=== PATIENT | male | born 1980 | race Caucasian/White ===

== ENCOUNTER 2022-10-12 08:15 | Emergency (ER) | payer BC, SELFPAY ==
[2022-10-12 08:22] VITALS: BP 113/85; PULSE 90; RESP 18; TEMP 37.1; O2SAT 98
--- NOTE | 2022-10-12 08:46 | ED.URI ---
HPI - URI/Sore Throat General Chief Complaint: Upper Respiratory Infection Stated Complaint: Cough/Chest Congestion Time Seen by Provider: 10/12/22 08:46 Source: patient, RN notes reviewed and old records reviewed Mode of arrival: ambulatory Limitations: no limitations History of Present Illness HPI Narrative: 42-year-old male who presents to [facility] with complaints of cough and sinus drainage for the past 2 weeks. Patient states he has had intermittent low-grade fevers denies any chills or sweats or any body aches he reports that he has been taking DayQuil and NyQuil and also some Mucinex, reports cough is productive at times of yellowish to brown phlegm. Patient does state that he has some tightness in his upper chest when he coughs. Patient reports that he has some left sided nasal bleeding noted and has an appointment with ENT. MD elicited complaint: cough, sore throat, rhinorrhea and nasal congestion Onset (ago): week(s) (2) Pain scale (0-10): 3 Able to tolerate fluids by mouth: Yes Treatments prior to arrival: other (DayQuil, NyQuil, Mucinex) Related Data Home Medications Medication Instructions Recorded Confirmed amitriptyline 50 mg tablet 50 mg PO DAILY 10/12/22 10/12/22 rizatriptan 10 mg tablet 10 mg PO DAILY PRN Migraine 10/12/22 10/12/22 Headache Allergies Allergy/AdvReac Type Severity Reaction Status Date / Time No Known Allergies Allergy Verified 10/12/22 08:35 Review of Systems Review of Systems: CONSTITUTIONAL: Reports malaise, chills, sweats, or fever. EYES: Denies visual changes, redness, or discharge. ENT: Reports rhinorrhea, congestion, sinus pain, no otalgia and no sore throat. CARDIOVASCULAR: reports some upper chest pain with cough,no palpitations, or edema. RESPIRATORY: Reports cough.? Reports some dyspnea with cough GASTROINTESTINAL: Denies abdominal pain, nausea, vomiting, diarrhea SKIN: Denies rash or itching. MUSCULOSKELETAL: Denies myalgia. NEUROLOGIC: Denies headache. All systems reviewed & are unremarkable except as noted in HPI and below PMFSH Past Medical History Medical History (Updated 10/13/22 @ 00:01 by Randy Alfaro) Hx of migraines Surgical History Surgical History (Updated 10/12/22 @ 09:03 by Adriana Mccollum NP) H/O umbilical hernia repair Social History Social History (Updated 10/12/22 @ 09:00 by Adriana Mccollum NP) Smoking status: Current every day smoker Tobacco type: e-cigarettes/vaping Alcohol intake: never Substance use type: does not use Living arrangements: with family Gender identity (if verbalized by the patient): Male Comments At time of signature, agree with nursing past medical, surgical, social and family history. There is no relevant family history pertinent to the presenting complaint Exam Narrative: GENERAL: Well-appearing, well-nourished, and in no acute distress. HEAD: Normocephalic EYES: PERRLA, conjunctivae clear ENT: Nares clear, turbinates edematous and erythematous, clear to light yellow discharge. Mucous membranes moist. TM pearly jacobson with dull light reflex bilaterally; no tragal tenderness. Oropharynx erythematous without lesions. Tonsils not enlarged and without exudate, no drooling, no hoarseness, no trismus, uvula midline.post nasal drainage. NECK: Supple. No lymphadenopathy CHEST: Clear to auscultation, breath sounds equal. No wheezing, rhonchi, rales, or stridor. No respiratory distress, speaks in full sentences.some dyspnea with cough, SAO2 98% on room air HEART: Regular rate and rhythm. No murmur heard. SKIN: Warm, dry, no rash. NEURO: Alert and oriented x3. PSYCH: Normal mood and affect Course Course Emergency Course: Patient is aware of diagnosis, understands and agrees to treatment plan.? Anticipatory guidance given.? Patient agrees to follow-up as directed and is aware of reasons to seek care at the emergency department. Portions of this record may have b
== END 2022-10-12 09:08 | disposition home or self-care (01) ==
PROVIDERS: Emergency Provider Registered Nurse; PCP Internal Medicine
DX: J32.9 Chronic sinusitis, unspecified (principal); R05.9 Cough, unspecified; F17.290 Nicotine dependence, other tobacco product, uncomplicated
CPT/HCPCS: 99203; G0463

== ENCOUNTER 2025-06-28 14:14 | Emergency (ER) | payer OTHER, SELFPAY ==
--- OUTSIDE RECORDS SUMMARY | 2025-06-28 14:17 | XMS_ITS | Clinical Summary ---
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 May repeat in 2 hours in needed 10 Tablet Active Additional Information Patient not taking.Reported on 12/18/2024 dicyclomine (BENTYL) 10 MG CapsuleIndicatio ns:Irritable bowel syndrome with diarrhea Take 1 Capsule by mouth as needed for Other (stomach cramping). 30 Capsule 5 Active Additional Information Patient not taking.Reported on 12/18/2024 Active Problems Problem Noted Date Diagnosed Date Irritable bowel syndrome Migraine Immunizations Immunization Administration Dates Next Due Influenza Vaccine, Quadrivalent, PF 07/13/2023 Influenza Vaccine,unspecified Formulation 2019 Influenza, Recombinant, Quadrivalent,injectable, Pf 05/26/2020 TDAP Vaccine 01/04/2016 Family History Medical History Relation Name Comments Diabetes Maternal Grandfather Skin Cancer Mother Prostate Cancer Paternal Grandfather Relation Name Status Comments Father Alive Maternal Grandfather Mother Alive Paternal Grandfather Social History Tobacco Use Types Packs/Day Years Used Date Smoking Tobacco: Former Cigarettes 0 Q uit: 01/28/2002 Smokeless Tobacco: Never Tobacco Cessation:Counseling Given: No Alcohol Use Standard Drinks/Week Comments No 0 (1 standard drink = 0.6 oz pur e alcohol) [facility] Utilities Answer Date Recorded In the past 12 months has e electric, gas, oil, or water company threatened to shut off services in your home? Yes 12/18/2024 Social Connection and Isolation Panel Answer Date Recorded In a typical week, how many times do you talk on the phone with family, friends, or neighbors? More than three times a week 12/18/2024 How often do you get togethe r with friends or relatives? Once a week 12/18/2024 How often do you attend chur ch or rastafari services? More than 4 times per year 12/18/2024 Do you belong to any clubs o r organizations such as catholic groups, unions, fraternal or athletic groups, or school groups? Yes 12/18/2024 How often do you attend meet ings of the clubs or organizations you belong to? More than 4 times per year 12/18/2024 Are you , , di vorced, , never , or living with a partner? 12/18/2024 AUDIT-C Answer Date Recorded Q1: How often do you have a drink containing alcohol? Never 12/18/2024 Q2: How many drinks containi ng alcohol do you have on a typical day when you are drinking? Patient does not drink Q3: How often do you have si x or more drinks on one occasion? Never 12/18/2024 Overall Financial Resource Strain (CARDIA) Answe r Date Recorded How hard is it for you to pa y for the very basics like food, housing, medical care, and heating? Somewhat hard 12/18/2024 PHQ-2 Answer Date Recorded Total Score - Questions 1-9 0 11/29 [employer] [place] [facility] Occup[employer] ional Health - Occupational Stress Questionnaire Answer Date Recorded Do you feel stress - tense, restless, nervous, or anxious, or unable to sleep at night because your mind is troubled all the time - these days? Only a little 12/18/2024 Exercise Vital Sign Answer Date Recorde d On average, how many days pe r week do you engage in moderate to strenuous exercise (like a brisk walk)? 5 days 12/18/2024 On average, how many minutes do you engage in exercise at this level? 60 min 12/18/2024 Hunger Vital Sign Answer Date Recorded Within the past 12 months, y ou worried that your food would run out before you got the money to buy more. Never true 12/19/19 25 Within the past 12 months, t he food you bought just didn't last and you didn't have money to get more. Never true 12/18/2024 PRAPARE - Transportation Answer Date Re corded In the past 12 months, has l ack of transportation kept you from medical appointments or from getting medications? No 11/29 In the past 12 months, has l ack of transportation kept you from meetings, work, or from getting things needed for daily living? No 12/18/2024 Housing Stability Vital Sign Answer Phan e Recorded In the last 12 months, was t here a time when you were not able to pay the mortgage or rent on time? No 07/13/2023 In the last 12 months, how many places have you lived? 1 07/13/2023 In the last 12 months, was t here a time when you did not have a steady place to sleep or slept in a nursing home (including now)? No 07/13/2023 Housing Stability Vital Sign Answer Phan e Recorded In the last 12 months, was t here a time when you were not able to pay the mortgage or rent on time? Yes 12/18/2024 In the past 12 months, how m any times have you moved where you were living? 0 12/18/2024 At any time in the past 12 m [facility], were you homeless or living in a nursing home (including now)? No 12/18/2024 Education Answer Date Recorded What is the highest level of school you have completed or the highest degree you have received? Some college, no degree 02/14/2022 Sex and Gender Information Value Date Recorded Sex Assigned at Not on file Legal Sex Male 1:17 PM CDT Gender Identity Not on file Sexual Orientation Not on file Last Filed Vital Signs Vital Sign Reading Time Taken Comments Blood Pressure 108/64 12/18/2024 2:47 PM CDT Pulse 72 12/18/2024 2:47 PM CDT Temperature 36.2 C (97.1 F) 12/18/2024 2:47 PM CDT Respiratory Rate 16 12/18/2024 2:47 PM CDT Oxygen Saturation 98% 12/18/2024 2:47 PM CDT Inhaled Oxygen Concentration - - Weight 82 kg (180 lb 12.8 oz) 12/18/2024 2:47 PM CDT Height 177.8 cm (5' 10) 12/18/2024 2:47 PM CDT Body Mass Index 25.94 12/18/2024 2:47 PM CDT Plan of Treatment Upcoming Encounters Date Type Department Care Team (Late st Contact Info) Description 12/23/2025 3:30 PM CDT Office Visit [facility] [address] [place] [address] Dani Sidhu MD [id number] [id number] Health Maintenance Due Date Last Done Comments Cologuard 2023 Colonoscopy 2023 Colorectal Cancer Screening 2023 Immunochemical Fecal Occult Blood 2023 Influenza Immunization (#1) 03/31/202506/30, 05/26/2020, 05/26/2020 Td Immunization Every 10 Yea rs (Adults With 1 Tdap) 01/03/2026 01/04/2016 Respiratory Syncytial Virus (RSV) Immunization (Adult) (1 - 1-dose 75+ series) 2053 DTaP/Tdap/Td Immunization Discontinued 01/04/2016 Hepatitis B Immunization Discontinued Hepatitis C Virus (HCV) Screening Discontinued Human Papillomavirus (HPV) Immunization Aged Out No longer eligible based on patient's age to complete this topic Meningococcal Immunization (ACWY) Aged Out No longer eligible based on patient's age to complete this topic Pneumococcal Immunization Combined Aged Out No longer eligible based on patient's age to complete this topic Rotavirus Immunization Aged Out No lo nger eligible based on patient's age to complete this topic SARS-COV-2 Immunization Discontinued Insurance [facility] Care Teams Wash Plant Operator Relationship Specialty Start Date End Date Dani Sidhu MD [address] [place] [address] PCP - General Family Medicine 03/25/22
[2025-06-28 14:21] VITALS: BP 120/97; PULSE 91; RESP 18; TEMP 36.3; O2SAT 98
--- NOTE | 2025-06-28 14:29 | ED.SKABFB ---
HPI - Skin/Abscess/Foreign Bdy General Chief complaint: Skin/Abscess/Foreign Body Stated complaint: remove stitches Time Seen by Provider: 06/28/25 14:20 Source: patient and RN notes reviewed Mode of arrival: ambulatory Limitations: no limitations History of Present Illness HPI narrative: 45-year-old male patient presents to the [facility] complaining of suture removal. He says he has sutures in for 8 days he was told to get a month 7-10. Patient's sutures in his left ring finger after accidentally cutting himself while gutting a deer. Patient was prophylactically prescribed cephalexin. Patient denies any concern of infection. Related Data Home Medications ?Medication ?Instructions ?Recorded ?Confirmed ?Last Taken ?Type amitriptyline 50 mg tablet 50 mg PO DAILY 10/12/22 10/12/22 Unknown History rizatriptan 10 mg tablet 10 mg PO DAILY PRN Migraine 10/12/22 10/12/22 Unknown History Headache dicyclomine 10 mg capsule mg 06/28/25 Unknown History Allergies Allergy/AdvReac Type Severity Reaction Status Date / Time No Known Allergies Allergy Verified 06/28/25 14:21 Review of Systems Review of Systems: CONSTITUTIONAL: Denies fever, chills, or sweats. EYES: Denies visual changes, redness, or discharge. ENT: Denies rhinorrhea, congestion, sore throat, or otalgia. CARDIOVASCULAR: Denies chest pain, palpitations, or edema. RESPIRATORY: Denies cough or dyspnea. GASTROINTESTINAL: Denies abdominal pain, nausea, vomiting, or diarrhea. GENITOURINARY: Denies dysuria or hematuria. SKIN: Denies rash or itching. Positive for laceration MUSCULOSKELETAL: Denies back pain, joint pain, or myalgia. NEUROLOGIC: Denies headache, numbness, or weakness. PSYCHIATRIC: Denies anxiety or depression. All other systems reviewed are negative, except as documented in HPI. [facility] Past Medical History Medical History Hx of migraines Surgical History Surgical History H/O umbilical hernia repair Social History Social History Smoking status: Current every day smoker Tobacco type: e-cigarettes/vaping Alcohol intake: never Substance use type: does not use Living arrangements: with family Gender identity (if verbalized by the patient): Male Comments At the time of my signature, I reviewed and agree with the nursing past medical, surgical, social, and family history. There is no relevant family history pertinent to the patient complaint. Exam Narrative: GENERAL: This is a well-nourished, well-developed adult, in no apparent distress. They are non ill-appearing, nontoxic appearing. HEAD: normocephalic, atraumatic. EYES: Sclera clear/white. Conjunctiva normal. Vision is grossly intact. Extraocular movements intact EARS: External ears normal,. Hearing grossly intact. NOSE: External nose normal THROAT: Mucous membranes moist, NECK: Neck supple, CARDIOVASCULAR: Regular rate and rhythm RESPIRATORY: Respiratory rate normal, respiratory effort nonlabored, no respiratory distress GASTROINTESTINAL: Abdomen soft, non-tender, nondistended. Bowel sounds are active. No hepato-splenomegaly, or palpable masses. No guarding. SKIN: Left ring finger. Sutures present to the distal palmar ring finger. Six sut[address]. No erythema, swelling, pain, exudate, drainage, no induration, no area of fluctuance. Wound is closed and well approximated. Normal range of motion. Capillary refill less than 2 seconds. Sensation intact. Neurovascular status intact distal injury. NEURO: awake, alert, and oriented to person, place and time. There were no obvious focal neurologic abnormalities. EXTREMITIES: No joint tenderness, effusion, or edema noted. BACK: Nontender without deformity. Course Course Emergency Course: Portions of this record may have been created with voice recognition software Level of Care: Express Care Visit Vital Signs Vital signs: Vital Signs Temperature 97.3 F L 06/28/25 14:21 Pulse Rate 91 06/28/25 14:21 Respiratory Rate 18 06/28/25 14:21 Blood Pressure 120/97 H 06/28/25 14:21 Pulse Oximetry 98 06/28/25 14:21 Oxygen Delivery Room Air 06/28/25 14:21 Temperature 97.3 F L 06/28/25 14:21 Pulse Rate 91 06/28/25 14:21 Respiratory Rate 18 06/28/25 14:21 Blood Pressure 120/97 H 06/28/25 14:21 Pulse Oximetry 98 06/28/25 14:21 Oxygen Delivery Room Air 06/28/25 14:21 Reviewed MDM - Skin/Abscess/Foreign Bdy MDM Narrative Medical decision making narrative: Successful removal of 6 sutures. No evidence of infection. No finger dysfunction. Discussed physical exam findings. Advised supportive measures and signs/symptoms to go to the ER. Pt is appropriate for outpt treatment and f/u. Critical Care Time Critical Care Time Critical Care Time: No Discharge Plan Discharge Clinical Impression: Visit for suture removal Patient Disposition: Home Condition: Stable Instructions: Care For Your Stitches (ED) Additional Instructions: Continue to wash the skin do with mild soap and water. Do not soak or scrub the wound. Continue to look for signs of infection such as increased redness, swelling, pain, green/yellow drainage, fevers, body aches, chills. Follow-up PCP as needed. Return the ER for any signs of infection or any serious concerns. Patient Language: Thai Prescriptions: No Action rizatriptan 10 mg tablet 10 mg PO DAILY PRN (Reason: Migraine Headache) amitriptyline 50 mg tablet 50 mg PO DAILY dicyclomine 10 mg capsule Follow-up/Referrals: Nahum,Dani Santizo MD [Primary Care Provider] Time of Disposition: 14:29
== END 2025-06-28 14:33 | disposition home or self-care (01) ==
PROVIDERS: PCP Internal Medicine
DX: S61.215D Laceration without foreign body of left ring finger without damage to nail, subsequent encounter (principal); W45.8XXD Other foreign body or object entering through skin, subsequent encounter; F17.290 Nicotine dependence, other tobacco product, uncomplicated
CPT/HCPCS: 99211; G0463